=== PATIENT | female | born 1985 | race Caucasian/White ===

== ENCOUNTER 2017-01-12 11:03 | Emergency (ER) | payer SELFPAY ==
[~2017-01-12] VITALS: Ht 160 cm; Wt 84.5 kg
[2017-01-12 11:09] VITALS: Ht 160 cm; Wt 84.5 kg
[2017-01-12 12:44] LABS: BASOPHILS % 0.5 % (0.0-2.0); EOSINOPHILS # 0.4 10^3/ul (0.0-0.5); EOSINOPHILS % 4.9 % (0.0-7.0); HEMATOCRIT 37.1 % (37.0-47.0); HEMOGLOBIN 12.2 g/dl (12.0-16.0); LYMPHOCYTES # 3.5 10^3/ul (0.8-2.9); LYMPHOCYTES % 42.3 % (15.0-51.0); MEAN CORPUSCULAR HGB CONC 32.9 g/dl (32.0-37.0); MEAN CORPUSCULAR VOLUME 88.3 fl (82.0-101.0); MEAN PLATELET VOLUME 9.5 fl (7.4-10.4); MONOCYTE # 0.7 10^3/ul (0.3-0.9); MONOCYTES % 8.8 % (0.0-11.0); NEUTROPHIL # 3.6 10^3/ul (1.6-7.5); PLATELET COUNT 223 10^3/UL (140-415); RED CELL DISTRIBUTION WIDTH 12.4 % (11.5-14.5); WHITE BLOOD COUNT 8.3 10^3/ul (4.8-10.8)
--- NOTE | 2017-01-12 12:56 | ERD ---
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 She states that started with her hands and now is affecting her arms as well as her legs. She currently was treated for a right thigh abscess that was incised and drained and she was treated with Keflex and Bactrim about 2 weeks ago as well after the swelling started. However she states that she is taking Keflex and Bactrim for other abscesses in the past without any difficulty. She has not had any fevers or chills, chest pain, orthopnea, cough. ROS All systems reviewed and are negative except as per history of present illness. Medications Home Meds Active Scripts Ibuprofen* (Motrin*) 600 Mg Tab, 600 MG PO Q6, #30 TAB Prov:ART MEDELLIN PA-C 01/12/17 Allergies Allergies: Coded Allergies: buprenorphine (Unverified Allergy, Unknown, 01/12/17) naltrexone (Unverified Allergy, Unknown, 01/12/17) PMhx/Soc Hx Miscellaneous Medical Probl: Yes (DRUG USER) Hx Alcohol Use: Yes Hx Substance Use: Yes Hx Tobacco Use: Yes Smoking Status: Current every day smoker Physical Exam Vitals Vital Signs Date Time Temp Pulse Resp B/P Pulse Ox O2 Delivery O2 Flow Rate FiO2 01/12/17 11:09 97.3 86 20 127/64 98 Physical Exam General: Well-developed, well-nourished. The patient appears in no acute distress. HEENT: Head is normocephalic, atraumatic. No scleral icterus. Neck: Supple. Nontender. Lungs: Clear to auscultation. Normal air movement. Heart: Regular rate and rhythm. S1 and S2 are normal. No murmurs, gallops, or rubs. Abdomen: Soft, nontender, nondistended. Bowel sounds are normoactive. Extremities: Nonpitting edema to the upper and lower extremities. Neurologic: Alert and oriented 3. No focal deficits. Skin: Scar from old abscess on the right thigh, flattened, no erythema or drainage. Result Diagram: 01/12/17 1240 01/12/17 1240 Results 24 hrs Laboratory Tests Test 01/12/17 12:15 01/12/17 12:40 01/12/17 12:54 Serum HCG, Qualitative NEGATIVE White Blood Count 8.310^3/ul Red Blood Count 4.2010^6/ul Hemoglobin 12.2g/dl Hematocrit 37.1% Mean Corpuscular Volume 88.3fl Mean Corpuscular Hemoglobin 29.0pg Mean Corpuscular Hemoglobin Concent 32.9g/dl Red Cell Distribution Width 12.4% Platelet Count 42225^3/UL Mean Platelet Volume 9.5fl Neutrophils % 43.0% Lymphocytes % 42.3% Monocytes % 8.8% Eosinophils % 4.9% Basophils % 0.5% Nucleated Red Blood Cells % 0.0/100WBC Neutrophils # 3.610^3/ul Lymphocytes # 3.510^3/ul Monocytes # 0.710^3/ul Eosinophils # 0.410^3/ul Basophils # 0.010^3/ul Nucleated Red Blood Cells # 0.010^3/ul Sodium Level 140mmol/L Potassium Level 4.7mmol/L Chloride Level 103mmol/L Carbon Dioxide Level 27mmol/L Anion Gap 15 Blood Urea Nitrogen 7mg/dl Creatinine 0.64mg/dl Glucose Level 74mg/dl Calcium Level 8.7mg/dl Total Bilirubin 0.0mg/dl Direct Bilirubin 0.00mg/dl Indirect Bilirubin 0.0mg/dl Aspartate Amino Transf (AST/SGOT) 68IU/L Alanine Aminotransferase (ALT/SGPT) 48IU/L Alkaline Phosphatase 75IU/L B-Type Natriuretic Peptide 49PG/ML Total Protein 7.3g/dl Albumin 4.1g/dl Globulin 3.20g/dl Albumin/Globulin Ratio 1.28 Urine Color YELLOW Urine Clarity CLEAR Urine pH 7.0 Urine Specific Clark 1.014 Urine Ketones NEGATIVEmg/dL Urine Nitrite NEGATIVEmg/dL Urine Bilirubin NEGATIVEmg/dL Urine Urobilinogen NEGATIVEmg/dL Urine Leukocyte Esterase NEGATIVELeu/ul Urine Hemoglobin NEGATIVEmg/dL Urine Glucose NEGATIVEmg/dL Urine Total Protein NEGATIVEmg/dl Current Medications Medications (Trade) Dose Ordered Sig/Kathi Route PRN Reason Start Time Stop Time Status Last Admin Dose Admin Ketorolac Tromethamine (Toradol) 30 mg ONCE STAT IM 01/12/17 13:59 01/12/17 14:00 DC DIAGNOSTIC IMAGING REPORT Patient: NEREIDA SON : 1985 Age: 31 Sex: F MR #: [id number] DOS: 01/12/17 1219 Ordering MD: ART MEDELLIN PA-C Location: [facility] Room/Bed: PROCEDURE: XR Chest. CLINICAL INDICATION: Dizziness. TECHNIQUE: Single frontal view of the chest was obtained. COMPARISON: None FINDINGS: There are clips along the lower right chest wall. The soft tissues are otherwise normal. The bony elements are normal. The heart, cardiomediastinal silhouette and hilar structures are normal. The pulmonary vasculature is normal. There is a left-sided aorta. The lungs are clear. The left costophrenic angle may be blunted. This may reflect pleural scarring or small pleural effusion. A left lateral decubitus view can be performed for additional evaluation if needed. The right costophrenic angle may be minimally blunted. IMPRESSION: 1. There is no evidence of active cardiopulmonary disease. 2. Blunting of the costophrenic angles. Pleural scarring or small pleural effusions are not excluded. RPTAT:AAJJ Physician Arely Date Time Electronically viewed and signed by Physician Arely on 01/12/2017 13:18 JM/ CC: ART MEDELLIN PA-C Procedures/MDM 31-year-old female presents with generalized swelling for the past 2 weeks, the patient states she is achy pain as well. Clinically she does not show any signs of DVT, CHF, fluid overload, cellulitis. The patient's vitals were reviewed and normal. Patient does not show any signs of acute kidney injury, acute kidney failure, proteinuria, abnormal chemistries, electrolyte abnormalities, anemia, or elevated BNP. All of her labs are normal. Chest x- ray was negative for an acute cardiopulmonary process. She does continue to need to complain of body pain was given Toradol. I doubt myositis, rhabdomyolysis, abscess. Her labs today are normal, she does not show any signs of emergent conditions and will be discharged at this time. She does complain of body pain, is currently in recovery for heroin and opiate abuse, and was given ibuprofen for pain control outpatient. She is to follow-up with a copy of all of her labs with her primary care doctor for further evaluation and management. Departure Diagnosis: Primary Impression: Swelling Condition: ART Capone PA-C Jan 12, 2017 12:56
[2017-01-12 13:06] LABS: ALBUMIN 4.1 g/dl (3.3-4.9); ALBUMIN/GLOBULIN RATIO 1.28; CALCIUM 8.7 mg/dl (8.4-10.2); CREATININE 0.64 mg/dl (0.44-1.00); POTASSIUM 4.7 mmol/L (3.5-5.1); TOTAL PROTEIN 7.3 g/dl (6.1-8.1)
[2017-01-12 13:08] LABS: ADD UMIC NO; UR ASCORBIC ACID NEGATIVE (NEGATIVE); UR BILIRUBIN (Dip) NEGATIVE (NEGATIVE); UR BLOOD (Dip) NEGATIVE (NEGATIVE); UR CLARITY CLEAR (CLEAR); UR COLOR YELLOW (YELLOW); UR GLUCOSE (Dip) NEGATIVE (NEGATIVE); UR KETONES (Dip) NEGATIVE (NEGATIVE); UR LEUKOCYTE ESTERASE (Dip) NEGATIVE Leu/ul (NEGATIVE); UR NITRITE (Dip) NEGATIVE (NEGATIVE); UR SPECIFIC GRAVITY (Dip) 1.014 (1.003-1.030); UR TOTAL PROTEIN (Dip) NEGATIVE (NEGATIVE); UR UROBILINOGEN (Dip) NEGATIVE (NEGATIVE)
--- NOTE | 2017-01-12 13:19 | RADRPT ---
PROCEDURE: XR Chest. CLINICAL INDICATION: Dizziness. TECHNIQUE: Single frontal view of the chest was obtained. COMPARISON: None FINDINGS: There are clips along the lower right chest wall. The soft tissues are otherwise normal. The bony e lements are normal. The heart, cardiomediastinal silhouette and hilar structures are normal. The pu lmonary vasculature is normal. There is a left-sided aorta. The lungs are clear. The left costophr enic angle may be blunted. This may reflect pleural scarring or small pleural effusion. A left later al decubitus view can be performed for additional evaluation if needed. The right costophrenic angle may be minimally blunted. IMPRESSION: 1. There is no evidence of active cardiopulmonary disease. 2. Blunting of the costophrenic angles. Pleural scarring or small pleural effusions are not exclude d. RPTAT:AAJJ Physician Arely Date Time Electronically viewed and signed by Asher Hu Physician on 01/12/2017 13:18 MILADY/
[2017-01-12] MEDS ORDERED: IBUP-1542 PO (13:59)
[2017-01-12] MEDS ORDERED: KETOROLAC 30 MG INJ IM STA (13:59)
== END 2017-01-12 14:29 | disposition home or self-care (01) ==
LOC: FTE 11:03
DX: R22.32 Localized swelling, mass and lump, left upper limb (principal); F17.210 Nicotine dependence, cigarettes, uncomplicated
CPT/HCPCS: 36415; 71010; 80053; 81003; 83880; 84703; 85025; 96372; 99284; J1885